=== PATIENT | female | born 1935 | race Caucasian/White ===

== ENCOUNTER 2016-05-25 12:22 | Emergency (ER) | payer OTHER ==
[~2016-05-25] VITALS: Ht 170.2 cm; Wt 65.8 kg
[2016-05-25 14:20] VITALS: BP 141/51
== END 2016-05-25 14:31 | disposition home or self-care (01) ==
LOC: ED 12:22
DX: S62.617A Displaced fracture of proximal phalanx of left little finger, initial encounter for closed fracture (principal); S00.83XA Contusion of other part of head, initial encounter; I10 Essential (primary) hypertension; Z88.5 Allergy status to narcotic agent; Z88.6 Allergy status to analgesic agent; Z79.899 Other long term (current) drug therapy; W17.89XA Other fall from one level to another, initial encounter; Y93.89 Activity, other specified; Y99.8 Other external cause status; Y92.89 Other specified places as the place of occurrence of the external cause
CPT/HCPCS: Q0092

== ENCOUNTER 2016-12-30 14:17 | Inpatient (IN) | payer OTHER ==
[~2016-12-30] VITALS: Ht 172.7 cm; Wt 66.7 kg
--- NOTE | 2016-12-30 14:59 | NUR ---
PT ARRIVED TO ED BY [facility] FOR COMPLAINT OF NEAR SYNCOPE AND LETHARGY. PT STATES SHE HAD JUST HAD A LARGE MEAL AND WAS HAVING A STRESSFUL CONVERSATION WITH HER FAMILY. DURING THIS CONVERSATION SHE BECAME, LIGHT HEADED DIZZY. SHE STATES " I FELT LIKE I WAS GOING TO PASS OUT" EPISODE LAST FOR APPROX 3-4 MINUTES. UPON EMS ARRIVAL PT WAS AWAKE AND ALERT BUT CONTINUED TO FEE LIGHT HEADED AND NAUSEATED. PT GIVEN ZOFRAN 4MG PO ENROUTE TO ED. NAUSEA RESOLVED. PT DENIES FEELINGS OF PASSING OUT BUT STATES SHE FEELS LIGHTHEADED. PT TO ROOM 4. PLACED ON CM. EKG COMPLETED.
[2016-12-30 16:03] LABS: BASOPHIL % 0.5 % (0-2); PLATELET COUNT 244 x10^3mcL (130-400); RED CELL DISTRIBUTION WIDTH 13.7 % (11.5-14.5)
[2016-12-30 16:10] LABS: CALCIUM 9.1 mg/dL (8.5-10.1); CARBON DIOXIDE 29.1 mmol/L (21-32); CHLORIDE SERUM 100 mmol/L (98-107); CREATININE SERUM 1.1 mg/dL (0.6-1.0); GLUCOSE SERUM 153 mg/dL (74-106); POTASSIUM SERUM 4.1 mmol/L (3.5-5.1); SODIUM SERUM 138 mmol/L (136-145)
[2016-12-30 16:23] LABS: ALBUMIN 3.4 g/dL (3.4-5.0); ALKALINE PHOSPHATASE 73 U/L (46-116); ALT/SGPT 26 U/L (14-59); AST/SGOT 20 U/L (15-37); BILIRUBIN TOTAL 0.4 mg/dL (0.20-1.00); T4(THYROXINE) 7.2 ug/dL (4.7-13.3); TOTAL PROTEIN, SERUM 7.2 g/dL (6.4-8.2)
[2016-12-30 16:51] LABS: CK-MB 0.8 ng/mL (0-3.6)
[2016-12-30 17:04] LABS: AMPHETAMINE QUAL UR NONE DETECTED (NEG <=1000)
--- NOTE | 2016-12-30 18:01 | NUR ---
DR REDDY AT BEDSIDE SPEAKING TO PT AND PT FAMILY
[2016-12-30] MEDS ORDERED: PRILOSEC OTC20 M1 PO (18:40)
[2016-12-30] MEDS ORDERED: SIMVASTATIN10 M1 PO (18:40)
[2016-12-30] MEDS ORDERED: METOPROLOL SUCC50 M2 PO (18:40)
[2016-12-30] MEDS ORDERED: CARDIZEM CD180 MG PO (18:40)
[2016-12-30] MEDS ORDERED: COUMADIN2 MG PO (18:41)
--- NOTE | 2016-12-30 18:56 | NUR ---
RECEIVED O2 ORDER AT 1845. SAW PATIENT AT 1850 IN ER. PATIENT ON ROOM AIR, SAT 98% HEART RATE 64 AND B/S CLEAR. NO RESPIRATORY DISTRESS VISIBLE AND PATIENT CONFIRMED SHE IS NOT SOB.
--- NOTE | 2016-12-30 19:17 | NUR ---
REPORT GIVEN TO MELLO FIELDS TO ASSUME CARE OF THE PT.
--- NOTE | 2016-12-30 19:30 | NUR ---
RECEIVED PT FROM ED VIA [facility], CAME IN DUE TO DIZZINESS AND NEAR SYNCOPE. AAOX4. DENIES HEADACHE/DIZZINESS. ABLE TO FOLLOW COMMANDS. NO FACIAL DROOP NOTED. HAND PRODUCTION CONTROLLER ARE EQUAL. NO SOB NOTED. DENIES CHEST PAIN/PRESSURE, SR ON THE MONITOR. DENIES ABDOMINAL DISCOMFORT. 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 SIDE RAILS UPX2. CALL LIGHT ON REACH. ENDORSED TO PRIMARY NURSE JEANETTE FOR CONTINUITY OF CARE.
--- NOTE | 2016-12-30 19:35 | NUR ---
PT A/O X4, DENIES DIZZINESS. TELE #1, NSR, DENIES CHEST PAIN. PULSES PALPABLE, NO EDEMA PRESENT. LUNG SOUNDS CTA, BREATHING ON RA, DENIES SOB. ABD SOFT AND NONDISTENDED, BOWEL ACTIVE, LBM-TODAY. VOIDS ADEQUATELY. AMBULATORY, BRP. SMALL, DRY SCAB NOTED TO LLE. DENIES PAIN AT THIS TIME. IVF INFUSING WELL TO LAC, NS @ 80 ML/HR. BED IN LOWEST SETTING, SIDE RAILS UP X2, CALL LIGHT WITHIN REACH. ORIENTED PT TO ROOM AND SURROUNDINGS. WILL CONTINUE TO MONITOR.
[2016-12-30 19:43] VITALS: BP 169/61
[2016-12-30 19:46] VITALS: Ht 172.7 cm; Wt 66.7 kg
[2016-12-30 20:33] LABS: AMYLASE 46 U/L (25-115); LIPASE 196 IU/L (73-393)
[2016-12-30 20:37] LABS: MAGNESIUM 2.1 mg/dL (1.8-2.4)
[2016-12-30 20:39] LABS: CHOLESTEROL/HDL RATIO 1.7
[2016-12-30 20:43] LABS: T3 TOTAL 1.04 ng/mL
[2016-12-30 20:59] LABS: microscopic required? NO
[2016-12-30 21:02] LABS: FREE THYROXINE INDEX 2.8 ug/dL (1.4-4.5); T4(THYROXINE) 7.6 ug/dL (4.7-13.3)
[2016-12-30 21:05] LABS: urine erythrocyte NEGATIVE (NEGATIVE)
[2016-12-30 21:11] VITALS: BP 169/61
[2016-12-31] VITALS (9 sets, daily range): BP systolic 146–180; BP diastolic 56–90
--- NOTE | 2016-12-31 02:20 | NUR ---
ASSISTED PT TO BATHROOM AT THIS TIME. PT DENIES PAIN, HEADACHE, AND DIZZINESS. NO RESP DISTRESS OBSERVED. IVF INFUSING WELL. CALL LIGHT WITHIN REACH. WILL CONTINUE TO MONITOR.
--- NOTE | 2016-12-31 05:52 | NUR ---
PT SLEPT AT INTERVALS THROUGHOUT THE NIGHT. ASSISTED PT TO BATHROOM AT THIS TIME. PT DENIES HEADACHE, DIZZINESS AND PAIN. SEIZURE PRECAUTION AND ASPIRATION PRECAUTION MAINTAINED. IVF INFUSING WELL TO LAC. CALL LIGHT WITHIN REACH. WILL ENDORSE CARE TO AM NURSE.
--- NOTE | 2016-12-31 07:15 | NUR ---
RECEIVED REPORT FROM [facility] MELLO REID AT THIS TIME. PATIENT IS AWAKE, ALERT, AND O X 4. RESTING IN BED. ON ROOM AIR, NO DISTRESS NOTED. SZ PRECAUTIONS IN PLACE. PERRLA, BRISK 3MM TO BOTH EYES. ON TELE # 1. IV TO LAC IN PLACE. SCDS IN PLACE. CALL LIGHT WITH IN REACH. INSTRUCTED PATIENT ON FALL PREVENTION.
[2016-12-31 08:31] LABS: BASOPHIL % 0.6 % (0-2); PLATELET COUNT 228 x10^3mcL (130-400); RED CELL DISTRIBUTION WIDTH 13.8 % (11.5-14.5)
--- NOTE | 2016-12-31 08:31 | NUR ---
OK TO GIVE METROPOLOL PER DR. ROPER AT THIS TIME.
[2016-12-31 08:50] LABS: CALCIUM 8.8 mg/dL (8.5-10.1); CARBON DIOXIDE 29.5 mmol/L (21-32); CHLORIDE SERUM 105 mmol/L (98-107); CREATININE SERUM 1.1 mg/dL (0.6-1.0); GLUCOSE SERUM 96 mg/dL (74-106); MAGNESIUM 1.9 mg/dL (1.8-2.4); PHOSPHOROUS 3.4 mg/dL (2.5-4.9); POTASSIUM SERUM 4.5 mmol/L (3.5-5.1); SODIUM SERUM 139 mmol/L (136-145)
--- NOTE | 2016-12-31 09:15 | NUR ---
ROUNDS MADE AT THIS TIME. DR. BONILLA, RESIDENT TEAM, TEACHER AIDE CLERICAL AND PRIMARY RN AT THE BEDSIDE. PLAN OF CARE IS DISCUSSED. ALL QUESTIONS AND CONCERNS ADDRESSED.
--- NOTE | 2016-12-31 12:00 | NUR ---
IN TO SEE PATIENT AND PERFORM BEDSIDE BLOOD GLUCOSE, SEE EMAR. PATIENT TALKING WITH VISITOR AT THE BEDSIDE. TIPPLE SUPERVISOR AT ALSO AT THE BEDSIDE.
--- NOTE | 2016-12-31 12:36 | NUR ---
ECHO COMPLETED.HELPED TO BATHROOM AMD BACK VISITOR PRESENT
--- NOTE | 2016-12-31 14:30 | NUR ---
DR. ROPER NOTIFIED BP 171//68, HR 63. NITRO PRN GIVEN AT THIS TIME FOR BP ORDRED (SEE EMAR).
--- NOTE | 2016-12-31 16:20 | NUR ---
DISCHARGE INSTRUCTIONS GIVEN TO PATIENT AND HER DAUGHTER AT THE BEDSIDE. QUESTONS AND CONCERNS ADDRESSED. IV REMOVED, CATH INTACT. 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 ID BANDS REMOVED. INSTRUCTED PATIENT ON HOW TO OBTAIN MEDICAL RECORDS.
== END 2016-12-31 16:35 | disposition home health service (06) | DRG 312 ==
LOC: ED 14:17 → DU 18:26
PROVIDERS: Emergency Medicine; ADMIT Family Medicine
DX: R55 Syncope and collapse (principal); I48.91 Unspecified atrial fibrillation; I25.10 Atherosclerotic heart disease of native coronary artery without angina pectoris; R73.03 Prediabetes; I16.0 Hypertensive urgency; E78.5 Hyperlipidemia, unspecified; I25.2 Old myocardial infarction; Z68.22 Body mass index [BMI] 22.0-22.9, adult; Z79.01 Long term (current) use of anticoagulants
CPT/HCPCS: 36600; 82962; 83880; 84439; J0696; J7030; Q0092

== ENCOUNTER 2019-03-16 18:27 | Inpatient (IN) | payer OTHER ==
[~2019-03-16] VITALS: Ht 170.2 cm; Wt 66.8 kg
[~2019-03-16 18:27] MED LIST: CARDIZEM CD180 MG PO; COUMADIN2 MG PO; METOPROLOL SUCC50 M2 PO; PRILOSEC OTC20 M1 PO; SIMVASTATIN10 M1 PO
[2019-03-16 18:31] VITALS: Ht 170.2 cm; Wt 66.8 kg
[2019-03-16 19:58] LABS: BASOPHIL % 0.5 % (0-2); PLATELET COUNT 286 x10^3mcL (130-400); RED CELL DISTRIBUTION WIDTH 14.3 % (11.5-14.5)
[2019-03-16 20:42] LABS: CALCIUM 8.5 mg/dL (8.5-10.1); CHLORIDE SERUM 101 mmol/L (98-107); GLUCOSE SERUM 82 mg/dL (74-106); SODIUM SERUM 135 mmol/L (136-145)
[2019-03-16 20:54] LABS: ALKALINE PHOSPHATASE 67 U/L (46-116); ALT/SGPT 17 U/L (14-59); AST/SGOT 15 U/L (15-37); BILIRUBIN TOTAL 0.2 mg/dL (0.20-1.00); TOTAL PROTEIN, SERUM 6.5 g/dL (6.4-8.2)
[2019-03-16] MEDS ORDERED: PRESERVISION A1 EACH PO (21:14)
[2019-03-16] MEDS ORDERED: FISH OIL 1,0001 EACH PO (21:14)
[2019-03-16] MEDS ORDERED: BIOTIN1 MG PO (21:14)
[2019-03-16] MEDS ORDERED: QUALITY CHOIC0.52 GM PO (21:15)
[2019-03-16] MEDS ORDERED: BIOTIN1 POW (21:15)
[2019-03-16] MEDS ORDERED: NATURE'S BLEND500 MG PO (21:15)
[2019-03-16] MEDS ORDERED: MULTI-VITAMIN1 EACH PO (21:15)
[2019-03-16 23:19] VITALS: BP 157/66
[2019-03-16 23:56] VITALS: BP 145/50
[2019-03-17 03:35] VITALS: BP 135/58
[2019-03-17 07:14] VITALS: BP 142/55
[2019-03-17 07:21] LABS: BASOPHIL % 0.6 % (0-2); PLATELET COUNT 238 x10^3mcL (130-400); RED CELL DISTRIBUTION WIDTH 14.4 % (11.5-14.5)
[2019-03-17 07:22] LABS: CHLORIDE SERUM 107 mmol/L (98-107); POTASSIUM SERUM 5.2 mmol/L (3.5-5.1); SODIUM SERUM 140 mmol/L (136-145)
[2019-03-17 07:23] LABS: ALBUMIN 2.6 g/dL (3.4-5.0); ALKALINE PHOSPHATASE 67 U/L (46-116); ALT/SGPT 10 U/L (14-59); AST/SGOT 12 U/L (15-37); BILIRUBIN TOTAL 0.33 mg/dL (0.20-1.00); CALCIUM 8.4 mg/dL (8.5-10.1); CARBON DIOXIDE 25.5 mmol/L (21-32); CREATININE SERUM 0.9 mg/dL (0.6-1.0); GLUCOSE SERUM 92 mg/dL (74-106); MAGNESIUM 1.9 mg/dL (1.8-2.4); TOTAL PROTEIN, SERUM 5.7 g/dL (6.4-8.2)
[2019-03-17 11:44] VITALS: BP 132/55
[2019-03-17 13:46] VITALS: BP 108/67
[2019-03-17 16:40] VITALS: BP 155/70
[2019-03-17 18:23] LABS: BASOPHIL % 0.6 % (0-2); PLATELET COUNT 222 x10^3mcL (130-400); RED CELL DISTRIBUTION WIDTH 15.8 % (11.5-14.5)
[2019-03-17 19:49] VITALS: BP 137/56
[2019-03-18 05:10] VITALS: BP 147/54
[2019-03-18 07:48] VITALS: BP 151/55
[2019-03-18 07:56] LABS: CALCIUM 8.5 mg/dL (8.5-10.1); CHLORIDE SERUM 104 mmol/L (98-107); GLUCOSE SERUM 94 mg/dL (74-106); SODIUM SERUM 138 mmol/L (136-145)
[2019-03-18 08:06] LABS: BASOPHIL % 0.9 % (0-2); PLATELET COUNT 210 x10^3mcL (130-400)
[2019-03-18 08:25] LABS: RED CELL DISTRIBUTION WIDTH 15.9 % (11.5-14.5)
[2019-03-18 11:33] VITALS: BP 144/51
[2019-03-18 13:20] VITALS: BP 144/51
== END 2019-03-18 14:49 | disposition home or self-care (01) | DRG 813 ==
LOC: ED 18:27 → DU 21:56
PROVIDERS: Emergency Medicine; Internal Medicine; Internal Medicine Pulmonary Disease; ADMIT Internal Medicine Pulmonary Disease
PROC: 0W3P8ZZ Control Bleeding in Gastrointestinal Tract, Via Natural or Artificial Opening Endoscopic (ICD-10-PCS; principal; 2019-03-18 08:00)
DX: D68.32 Hemorrhagic disorder due to extrinsic circulating anticoagulants (principal); K57.31 Diverticulosis of large intestine without perforation or abscess with bleeding; I48.20 Chronic atrial fibrillation, unspecified; D62 Acute posthemorrhagic anemia; T45.515A Adverse effect of anticoagulants, initial encounter; I25.2 Old myocardial infarction; E78.5 Hyperlipidemia, unspecified; I10 Essential (primary) hypertension; I25.10 Atherosclerotic heart disease of native coronary artery without angina pectoris; Z79.01 Long term (current) use of anticoagulants; Y92.018 Other place in single-family (private) house as the place of occurrence of the external cause; Z85.840 Personal history of malignant neoplasm of eye
CPT/HCPCS: 45378; 83880; C9113; G0378; J1200; J1610; J1956; J2250; J2310; J3010; J3490; J7030; J7050; J7120; P9016